=== PATIENT | male | born 1940 | race Caucasian/White ===

== ENCOUNTER → 2022-11-01 14:15 | Outpatient (BNVA) | payer MEDICARE, MEDICAID, SELFPAY | PROVIDERS: Family Provider Nurse Practitioner Family; PCP Family Medicine; Visit Provider Podiatrist Foot & Ankle Surgery | DX: M79.672 Pain in left foot (principal); M72.2 Plantar fascial fibromatosis; Z46.89 Encounter for fitting and adjustment of other specified devices | CPT/HCPCS: 73630; 97760; 99203; L4397 ==

== ENCOUNTER 2022-11-01 15:56 | Outpatient (CLI) | payer MEDICARE, MEDICAID, SELFPAY | END 2022-11-01 15:57 | disposition home or self-care (01) | LOC: SPT 15:56 | PROVIDERS: Family Provider Nurse Practitioner Family; PCP Family Medicine; Visit Provider Podiatrist Foot & Ankle Surgery | DX: Z46.89 Encounter for fitting and adjustment of other specified devices (principal); M72.2 Plantar fascial fibromatosis | CPT/HCPCS: 97760; 99203; L4397 ==

== ENCOUNTER → 2023-01-09 10:26 | Outpatient (BNVA) | payer MEDICARE, MEDICAID, SELFPAY | PROVIDERS: Family Provider Nurse Practitioner Family; PCP Family Medicine; Visit Provider Podiatrist Foot & Ankle Surgery | DX: M72.2 Plantar fascial fibromatosis (principal) | CPT/HCPCS: 99213 ==